=== PATIENT | male | born 1985 | race Hispanic/Latino ===

== ENCOUNTER 2017-08-28 19:52 | Emergency (ER) | payer BC, OTHER ==
[2017-08-28] MEDS ORDERED: diphenhydrAMINE 25 MG CAP ONE (20:13)
[2017-08-28] MEDS ORDERED: predniSONE 20 MG TAB ONE (20:47)
== END 2017-08-28 20:52 | disposition home or self-care (01) ==
LOC: SCSER 19:52
DX: L29.9 Pruritus, unspecified (principal); T39.8X5A Adverse effect of other nonopioid analgesics and antipyretics, not elsewhere classified, initial encounter
CPT/HCPCS: 99283; J7506

== ENCOUNTER 2020-04-13 12:50 | Outpatient (CLI) | payer OTHER ==
--- NOTE | 2020-04-13 14:00 | ULT ---
BILATERAL TESTICULAR ULTRAOSUND WITH POWERS SCALE, COLOR FLOW AND SPECTRAL DOPPLER IMAGIN04/13/20 HISTORY: Testicular mass, feeling a lump on the inferior posterior aspect of the left testis. No pain. FINDINGS: The right testis measures 3.4 x 4.4 x 2.4 cm and the left testis measures 3.1 x 4.4 x 2.7 cm. the rig ht epididymis measures 1.6 x 1.3 cm and the left epididymis measures 1.7 x 1.4 cm. There is a 2 cm cyst in the right epididymal head and a 6 mm cyst and a 4 mm septated cyst in the lef t epididymal head. No testicular mass or microlithiasis seen. Symmetric blood flow is seen to both testes and epididymi. There are left extratesticular vessels with increase during Valsalva suspicious for varicocele. IMPRESSION: 1. No evidence of testicular mass or torsion. 2. Left varicocele. 3. Epididymal head cysts. 1. POS: [facility]
== END 2020-04-13 12:51 | disposition home or self-care (01) ==
LOC: SCSULT 12:50
PROVIDERS: ATTEND Family Medicine
DX: N50.89 Other specified disorders of the male genital organs (principal); N50.3 Cyst of epididymis; I86.1 Scrotal varices
CPT/HCPCS: 76870; 93976